=== PATIENT | male | born 1995 | race Caucasian/White ===

== ENCOUNTER → 2017-07-14 | Outpatient (CLI) | payer BC ==
--- NOTE | 2017-07-14 14:17 | DIAGNOSTIC IMAGING REPORT ---
CT HEAD WITHOUT CONTRAST (CT) CLINICAL HISTORY: ACUTE HEADACHE R51 COMPARISON STUDY: No previous studies for comparison. TECHNIQUE: Axial CT of the brain is performed from the vertex to the skull base. IV contrast was not administered for this examination. A dose lowering technique was utilized adhering to the principles of ALARA. CT DOSE: 614.27 mGy.cm FINDINGS: No intra or extra-axial mass lesions are visualized. There is no CT evidence of acute cortical infarction. There is no evidence of midline shift. There is no acute hemorrhage. No calvarial fractures are visualized. There is an 11 mm lytic focus within the left anterior parietal calvarium. This has nonaggressive features. There is no evidence of pathologic ventricular dilatation. There is no evidence of acute sinusitis IMPRESSION: 1. No acute intracranial findings 2. Nonspecific 11 mm lytic focus within the left parietal calvarial vertex. This has nonaggressive imaging characteristics Electronically signed by: Rolf Paez M.D. 07/14/2017 2:16 PM Dictated Date/Time: 07/14/2017 2:14 PM
== END | disposition home or self-care (01) ==
LOC: C.CTS 14:01
PROVIDERS: ATTEND Emergency Medicine
DX: R51 Headache (principal)